=== PATIENT | female | born 1950 | race Two or more races ===

== ENCOUNTER 2023-12-23 16:44 | Inpatient (IN) | payer MEDICAID ==
[~2023-12-23] VITALS: Ht 161.3 cm; Wt 78.7 kg
--- NOTE | 2023-12-23 17:00 | ED.PDOC ---
HPI Comments 73Y F with PMHx depression presents to ED via EMS for chief complaint chest pain and SOB. Pt describes chest pain as pressure and non-radiating. Upon EMS arrival, pt's O2 sat was 88% and she was placed on oxygen supplementation. Per EMS, EKG showed RBBB. Chief Complaint: Chest Pain Time Seen by MD: 16:52 Reviewed Notes: Medications, Allergies Information Source: Patient, Emergency Med Personnel Mode of Arrival: EMS Brought in by: EMS Severity: Moderate Timing: Hours Duration: Since onset Prehospital treatment: Oxygen Location: Substernal Radiation: No Radiation Quality: Pressure Onset: At Rest Cardiac Risk Factors: None PE Risk Factors: None History of: None Modifying Factors: Nothing Associated Signs and Symptoms: SOB Past Medical History PAST MEDICAL HISTORY: Depression Surgical History: Denies all surgeries LIAISON INSPECTION LABORATORY ASSISTANT History: No Pertinent LIAISON INSPECTION LABORATORY ASSISTANT History Family History Family History: Unknown Social History Smoker: Unknown Alcohol: Unknown Drugs: Unknown Lives In: Home Constitutional: denies: chills, diaphoresis, fatigue, fever, malaise, sweats, weakness, others EENTM: denies: blurred vision, double vision, ear bleeding, ear discharge, ear drainage, ear pain, ear ringing, eye pain, eye redness, hearing loss, mouth pa in, mouth swelling, nasal discharge, nose bleeding, nose congestion, nose pain, photophobia, tearing, throat pain, throat swelling, voice changes, others Respiratory: reports: shortness of breath; denies: cough, hemoptysis, orthopnea, SOB at rest, SOB with excertion, stridor, wheezing, others Cardiovascular: reports: chest pain; denies: dizzy spells, diaphoresis, Dyspnea on exertion, edema, irregular heart beat, left arm pain, lightheadedness, palpitations, PND, syncope, others Gastrointestinal: denies: abdomen distended, abdominal pain, blood streaked bowels, constipated, diarrhea, dysphagia, difficulty swallowing, hematemesis, melena, nausea, poor appetite, poor fluid intake, rectal bleeding, rectal pain, vomiting, others Genitourinary: denies: abnormal vagina bleeding, burning, dyspareunia, dysuria, flank pain, frequency, hematuria, incontinence, pain, , vagina discharge , urgency, others Neurological: denies: dizziness, fainting, headache, left sided numbness, left sided weakness, numbness, paresthesia, pre-existing deficit, right sided numbness, right sided weakness, seizure, speech problems, tingling, tremors, weakness, others Musculoskeletal: denies: back pain, gout, joint pain, joint swelling, muscle pain, muscle stiffness, neck pain, others Integumetry: denies: bruises, change in color, change in hair/nails, dryness, laceration, lesions, lumps, rash, wounds, others Allergic/Immunocompromised: denies: Difficulty Healing, Frequent Infections, Hives, Itching, others Hematologic/Lymphatic: denies: anemia, blood clots, easy bleeding, easy bruising, swollen glands, others Endocrine: denies: excessive hunger, excessive sweating, excessive thirst, excessive urination, flushing, intolerance to cold, intolerance to heat, unexplained weight gain, unexplained weight loss, others Psychiatric: denies: anxiety, bipolar disorder, depression, hopeless, panic di sorder, schizophrenia, sleepless, suicidal, others All Other Systems: Reviewed and Negative Physical Exam General Appearance: Moderate Distress, Normal HEENT: Normal ENT Inspection, Pharynx Normal, TMs Normal Neck: Full Range of Motion, Non-Tender, Normal, Normal Inspection Respiratory: Chest Non-Tender, Lungs Clear, No Accessory Muscle Use, No Respiratory Distress, Normal Breath Sounds Cardiovascular: No Edema, No JVD, No Murmur, No Gallop, Normal Peripheral Pulses, Regular Rate/Rhythm Breast Exam: Deferred Gastrointestinal: No Organomegaly, Non Tender, No Pulsatile Mass, Normal Bowel Sounds, Soft Genitalia: Deferred Pelvic: Deferred Rectal: Deferred Extremities: No calf tenderness, Normal capillary refill, Normal inspection, Normal range of motion, Non-tender, No pedal edema Musculoskeletal : Apperance: Normal Neurologic: Alert, propulsion motor and generator repairer II-XII nml as Tested, No Motor Deficits, Normal Affect, Normal Mood, No Sensory Deficits Cerebellar Function: NOT DONE Reflexes: NOT DONE Skin: Dry, Normal Color, Warm Peripheral Pulses: 3+ Radial (R), 3+ Radial (L) Lymphatic: No Adenopathy Was a procedure done? Was a procedure done?: No CP Differential Dx Differential Diagnosis: A-fib, A-Flutter, Angina, Anxiety / Panic Attack, Atrial Dysrhythmia, Electrolyte Disorder X-Ray, Labs, Meds, VS Vital Signs Date Time Temp Pulse Resp B/P (MAP) Pulse Ox O2 Delivery O2 Flow Rate FiO2 12/23/23 16:44 86 Lab Test 12/23/23 16:59 Range/Units White Blood Count 6.0 4.4-10.8 10^3/uL Red Blood Count 4.29 4.0-5.20 10^6/uL Hemoglobin 13.9 12.2-16.2 g/dL Hematocrit 41.3 36.0-46.0 % Mean Corpuscular Volume 96.3 80.0-100.0 fL Mean Corpuscular Hemoglobin 32.5 H 28.0-32.0 pg Mean Corpuscular Hemoglobin Concent 33.7 32.0-36.0 g/dL Red Cell Distribution Width 13.7 11.8-14.3 % Platelet Count 187 140-450 10^3/uL Mean Platelet Volume 7.4 6.9-10.8 fL Neutrophils (%) (Auto) 46.8 37.0-80.0 % Lymphocytes (%) (Auto) 41.4 10.0-50.0 % Monocytes (%) (Auto) 9.8 0.0-12.0 % Eosinophils (%) (Auto) 1.6 0.0-7.0 % Basophils (%) (Auto) 0.4 0.0-2.0 % Neutrophils # (Auto) 2.8 1.6-8.6 10 ^3/uL Lymphocytes # (Auto) 2.5 0.4-5.4 10 ^3/uL Monocytes # (Auto) 0.6 0-1.3 10 ^3/uL Eosinophils # (Auto) 0.1 0-0.8 10 ^3/uL Basophils # (Auto) 0 0-0.2 10 ^3/uL Nucleated Red Blood Cells 0.1 % Prothrombin Time Pending Prothrombin Time INR Pending Activated Partial Thromboplast Time Pending Sodium Level Pending Potassium Level Pending Chloride Level Pending Carbon Dioxide Level Pending Anion Gap Pending Blood Urea Nitrogen Pending Creatinine Pending Glomerular Filtration Rate Calc Pending BUN/Creatinine Ratio Pending Serum Glucose Pending Calcium Level Pending Magnesium Level Pending Total Bilirubin Pending Aspartate Amino Transferase (AST) Pending Alanine Aminotransferase (ALT) Pending Alkaline Phosphatase Pending Troponin I High Sensitivity 97 *H </=34 ng/L B-Type Natriuretic Peptide 61.11 0-100 pg/mL Total Protein Pending Albumin Pending [facility] [id number] [facility] [address] Ph: [phone] DIAGNOSTIC IMAGING Diagnostic Imaging Report : [id number] Signed PATIENT: ESTEBAN JAFFE ACCT: [id number] UNIT: [id number] : 1950 LOC: ER ROOM / BED: / AGE / SEX: 73 / F ADM STATUS: REG ER SERVICE 44 ORDERING PHYSICIAN: VINCE RAMIREZ MD PROCEDURE(s): CXRP - CHEST PORTABLE REASON: CHEST PAIN ORDER NUMBER(s): [id number], ACCESSION NUMBER(s): [id number] CHEST RADIOGRAPH Indication:CHEST PAIN Technique: Single frontal view of the chest was obtained COMPARISON: None FINDINGS: Lines and Tubes: None Lungs: Clear Pleura: No effusion. No pneumothorax. Cardiomediastinal contours: Unremarkable Bones: Unremarkable IMPRESSION: No acute disease. ATED BY: DANIEL MISHRA MD DICTATED DATE/TIME: 12/23/231722 SIGNED BY: DANIEL MISHRA MD SIGNED DATE/TIME: 12/23/231722 CC: Patient alert. Complaining of chest pain. History of depression. Vitals stable. EKG reviewed does not show any acute changes. Was given aspirin. Was given nitro. Echo. Cardiology consultation. Her saturation was low in the field. Was placed on oxygen. Reviewed her previous visit. Explained to the patient. Continue cardiac monitoring. Time of 1ST Reevaluation: 17:03 Reevaluation 1ST: Unchanged Patient Education/Counseling: Diagnosis, Treatment Family Education/Counseling: No Family Present Departure 1 Departure Time of Disposition: 17:06 Impression: Primary Impression: Chest pain of unknown etiology Additional Impression: NSTEMI (non-ST elevated myocardial infarction) Disposition: 09 ADMITTED INPATIENT Admit to: Med Surg Condition: Guarded Critical Care Note Critical Care Time?: Yes (45 min-critical care time only) Stability Stability form required: No Heart Score Heart Score: Heart Score Response (Comments) Value History Slightly Suspicious 0 EKG Normal 0 Age >65 2 Risk Factors 1 or 2 risk factors 1 Troponin >3 x's Normal limit 2 Total 5 I personally scribed for VINCE RAMIREZ MD ([email or web address]) on 12/23/23 at 17:00. Electronically submitted by Alexa Nix ([facility] I personally scribed for VINCE RAMIREZ MD ([email or web address]) on 12/23/23 at 17:29. Electronically submitted by Alexa Nix ([email or web address]). VINCE RAMIREZ MD Dec 23, 2023 17:00
[2023-12-23 17:14] LABS: Basophils # (auto) 0 10 ^3/uL (0-0.2); Basophils % (auto) 0.4 % (0.0-2.0); Eosinophils # (auto) 0.1 10 ^3/uL (0-0.8); Eosinophils % (auto) 1.6 % (0.0-7.0); Hematocrit 41.3 % (36.0-46.0); Hemoglobin 13.9 g/dL (12.2-16.2); Lymphocytes # (auto) 2.5 10 ^3/uL (0.4-5.4); Lymphocytes % (auto) 41.4 % (10.0-50.0); Mean Corpuscular Hemoglobin 32.5 pg (28.0-32.0); Mean Corpuscular Hgb Conc. 33.7 g/dL (32.0-36.0); Mean Corpuscular Volume 96.3 fL (80.0-100.0); Monocytes # (auto) 0.6 10 ^3/uL (0-1.3); Monocytes % (auto) 9.8 % (0.0-12.0); Neutrophils # (auto) 2.8 10 ^3/uL (1.6-8.6); Neutrophils % (auto) 46.8 % (37.0-80.0); Nucleated Red Blood Cells % 0.1 %; Platelet Count (auto) 187 10^3/uL (140-450); Red Blood Cells 4.29 10^6/uL (4.0-5.20); Red Cell Distribution Width 13.7 % (11.8-14.3)
[2023-12-23] MEDS: MORPHINE SULFATE 4 MG/ML SYR/VIAL IV ONE (17:15)
[2023-12-23] MEDS: ONDANSETRON HCL 4 MG/2 ML VIAL IV ONE (17:15)
--- NOTE | 2023-12-23 17:27 | DVH ---
CHEST RADIOGRAPH Indication:CHEST PAIN Technique: Single frontal view of the chest was obtained COMPARISON: None FINDINGS: Lines and Tubes: None Lungs: Clear Pleura: No effusion. No pneumothorax. Cardiomediastinal contours: Unremarkable Bones: Unremarkable IMPRESSION: No acute disease.
[2023-12-23 17:34] LABS: Alanine Aminotransferase 23 U/L (7-40); Albumin 4.4 g/dL (3.2-4.8); Alkaline Phosphatase 76 U/L (46-116); Anion Gap 10 (5-15); Aspartate Aminotransferase 20 U/L (13-40); BUN/Creatinine Ratio 17.6 (10.0-20.0); Bilirubin, Total 0.5 mg/dL (0.2-1.0); Blood Urea Nitrogen 22 mg/dL (9-23); Calcium 9.9 mg/dL (8.7-10.4); Carbon Dioxide 23 mmol/L (20-31); Chloride 111 mmol/L (98-107); Glucose 108 mg/dL (74-106); Magnesium 2.3 mg/dL (1.6-2.6); Sodium 144 mmol/L (136-145); Total Protein 6.9 g/dL (5.7-8.2)
[2023-12-23 17:48] LABS: INR 1.03 (0.9-1.15); Partial Thromboplastin Time 27.3 SEC (24.5-34.5); Prothrombin Time 10.9 sec (9.3-11.8)
[2023-12-23 18:00] VITALS: PULSE 99; RESP 24; O2SAT 99
[2023-12-23] MEDS: ENOXAPARIN SOD 80 MG/0.8ML SYRINGE SC ONE (18:00)
[2023-12-23] MEDS: ASPirin 325 MG TAB PO ONE (18:00)
[2023-12-23 19:30] VITALS: PULSE 92; RESP 14; O2SAT 99
[2023-12-23] MEDS: NITROGLYCERIN 0.4 MG SL TAB SL ONE (19:43)
--- NOTE | 2023-12-23 20:44 | ECG ---
[facility] Test Date: 2023-12-23 Test Time: 19:17:27 Pat Name: ESTEBAN JAFFE Department: ER Room: Gender: F Manager Talent Management: AMANDA : 1950 Requested By: VINCE RAMIREZ Order Number: [id number] Reading MD: Measurements Intervals [place] Rate: 81 P: 69 WA: 176 QRS: -53 QRSD: 123 T: 76 QT: 389 QTc: 452 Interpretive Statements Sinus rhythm IVCD, consider atypical RBBB Please click the below link to view image of tracing.
[2023-12-23 21:02] VITALS: PULSE 77; RESP 15; O2SAT 100
[2023-12-23] MEDS ORDERED: ONDANSETRON HCL 4 MG/2 ML VIAL IV PRN (21:15)
[2023-12-23] MEDS ORDERED: ACETAMINOPHEN 325 MG TAB PO PRN (21:15)
[2023-12-23] MEDS: MAALOX PLUS or MAALOX 30 ML PO ONE (21:15)
[2023-12-23] MEDS ORDERED: NITROGLYCERIN 0.4 MG SL TAB SL PRN (21:15)
[2023-12-23] MEDS ORDERED: MORPHINE SULFATE 4 MG/ML SYR/VIAL IV PRN (21:15)
[2023-12-23] MEDS: SODIUM CHLORIDE 0.9% 1,000 ML IV SCH (21:32)
--- NOTE | 2023-12-23 21:37 | DVHHP2 ---
History of Present Illness Reason for Visit: chest pain History of Present Illness 73 yo with chest pain and shortness of breath and weakness was stated to have chest pain on arrival in the ED also stated noted RBBB at the time of ED arrival on evaluation for admission trops were seen to be severely elevated cardio was called directly and recommended admission and evaluation for possible cardiac cath lab technologist patient has received therapeutic Lovenox already Cardiovascular: HTN Review of Systems Constitutional: Yes: Weakness; No: Fever, Chills, Sweats, Malaise, Other Eyes: No: Pain, Vision change, Conjunctivae inflammation, Eyelid inflammation, Other, Redness ENT: No: Ear pain, Ear discharge, Nose pain, Nose discharge, Nose congestion, Mouth pain, Mouth swelling, Throat pain, Throat swelling, Other Respiratory: Shortness of breath; No: Cough, Dry, SOB with excertion, Wheezing, Hemoptysis, Pleuritic Pain, Sputum, Wheezing, Other Cardiovascular: Chest Pain; No: Palpitations, Orthopnea, Paroxysmal Noc. Dyspnea, Edema, Lt Headedness, Other Gastrointestinal: No: Nausea, Vomiting, Abdominal Pain, Diarrhea, Constipation, Melena, Hematochezia, Other Genitourinary: No Dysuria, No Frequency, No Incontinence, No Hematuria, No Retention, No Other Musculoskeletal: No: other, neck pain, shoulder pain, arm pain, back pain, hand pain, leg pain, foot pain Skin: No: Rash, Lesions, Jaundice, Bruising, Other Neurological: No: Weakness, Numbness, Incoordination, Change in speech, Confusion, Seizures, Other Allergies: Coded Allergies: NO KNOWN ALLERGIES (Unverified , 12/23/23) Exam Vital Signs Vital Signs Date Time Temp Pulse Resp B/P (MAP) Pulse Ox O2 Delivery O2 Flow Rate FiO2 12/23/23 20:57 77 15 103/72 (82) 99 12/23/23 19:30 97.7 97.7 12/23/23 19:30 Nasal Cannula* 2 28 General Appearance: Alert, Oriented X3, moderate distress HEENT: Atraumatic, PERRLA Respiratory: Clear to auscultation, Normal air movement Cardiovascular: Regular rate, Normal S1, Normal S2 Abdominal: Normal bowel sounds, Soft, No tenderness Extremities: No clubbing, No cyanosis Skin: No rashes, No breakdown Neuro: Normal speech Psych/Mental Status: Mental status NL, Mood NL Labs/Xrays Labs Test 12/23/23 19:42 12/23/23 16:59 Range/Units Troponin I High Sensitivity 1232 *H </=34 ng/L White Blood Count 6.0 4.4-10.8 10^3/uL Red Blood Count 4.29 4.0-5.20 10^6/uL Hemoglobin 13.9 12.2-16.2 g/dL Hematocrit 41.3 36.0-46.0 % Mean Corpuscular Volume 96.3 80.0-100.0 fL Mean Corpuscular Hemoglobin 32.5 H 28.0-32.0 pg Mean Corpuscular Hemoglobin Concent 33.7 32.0-36.0 g/dL Red Cell Distribution Width 13.7 11.8-14.3 % Platelet Count 187 140-450 10^3/uL Mean Platelet Volume 7.4 6.9-10.8 fL Neutrophils (%) (Auto) 46.8 37.0-80.0 % Lymphocytes (%) (Auto) 41.4 10.0-50.0 % Monocytes (%) (Auto) 9.8 0.0-12.0 % Eosinophils (%) (Auto) 1.6 0.0-7.0 % Basophils (%) (Auto) 0.4 0.0-2.0 % Neutrophils # (Auto) 2.8 1.6-8.6 10 ^3/uL Lymphocytes # (Auto) 2.5 0.4-5.4 10 ^3/uL Monocytes # (Auto) 0.6 0-1.3 10 ^3/uL Eosinophils # (Auto) 0.1 0-0.8 10 ^3/uL Basophils # (Auto) 0 0-0.2 10 ^3/uL Nucleated Red Blood Cells 0.1 % Prothrombin Time 10.9 9.3-11.8 sec Prothrombin Time INR 1.03 0.9-1.15 Activated Partial Thromboplast Time 27.3 24.5-34.5 SEC Sodium Level 144 136-145 mmol/L Potassium Level 4.0 3.5-5.1 mmol/L Chloride Level 111 H 98-107 mmol/L Carbon Dioxide Level 23 20-31 mmol/L Anion Gap 10 5-15 Blood Urea Nitrogen 22 9-23 mg/dL Creatinine 1.25 H 0.550-1.02 mg/dL Glomerular Filtration Rate Calc 46 >90 mL/min BUN/Creatinine Ratio 17.6 10.0-20.0 Serum Glucose 108 H 74-106 mg/dL Calcium Level 9.9 8.7-10.4 mg/dL Magnesium Level 2.3 1.6-2.6 mg/dL Total Bilirubin 0.5 0.2-1.0 mg/dL Aspartate Amino Transferase (AST) 20 13-40 U/L Alanine Aminotransferase (ALT) 23 7-40 U/L Alkaline Phosphatase 76 46-116 U/L B-Type Natriuretic Peptide 61.11 0-100 pg/mL Total Protein 6.9 5.7-8.2 g/dL Albumin 4.4 3.2-4.8 g/dL Assessment/Plan Assessment/Plan Admit to Tele NStemi Suspected RBBB Trops elevated most recent trops 1200 cardio consulted possible need for cardiac cath chest pain hospital protocol HTN monitor bp prn bp meds o2 supplements Plan discussed with: Patient My Orders Orders - SONIDO DODGE MD Procedure Category Date Status Time * Cardiology Consult CONS 12/23/23 Transmitted 21:02 Admit ADMIT 12/23/23 Transmitted 21:04 Code Status CODE 12/23/23 Transmitted 21:04 Airplane Pilot Chief TESSIE 12/23/23 In Process 21:04 Cardiac DIET 12/24/23 Transmitted Diet-2gna,Lofat,Lochol Breakfast Sodium Chloride 0.9% PHA 12/23/23 Logged 21:15 Aspirin Tablet PHA 12/24/23 Logged 10:00 Clopidogrel Bisulfate PHA 12/24/23 Logged (Plavix) 10:00 Atorvastatin (Lipitor) PHA 12/23/23 Logged 22:00 Metoprolol Tartrate PHA 12/23/23 Logged Tablet (Lopressor Ta 22:00 Morphine Sulfate PHA 12/23/23 Logged Injection 21:15 Acetaminophen Tablet PHA 12/23/23 Logged (Tylenol Tablet) 21:15 Docusate Sodium PHA 12/24/23 Logged Capsule (Colace 10:00 Complete Blood Count LAB 12/24/23 Verified 04:00 Basic Metabolic Panel LAB 12/24/23 Verified 04:00 Echo 2d Mode Cardiac US 12/23/23 Logged DOP 21:04 Enoxaparin Sodium PHA 12/23/23 Logged (Lovenox) 22:00 Nitroglycerin PHA 12/23/23 Logged Sublingual (Ntrostat 21:15 Ondansetron Hcl PHA 12/23/23 Logged (Zofran) 21:15 Electrocardigram EKG 12/23/23 Logged 21:04 Alum & Mag PHA 12/23/23 Logged Hydrox-Simethicone 21:15 Troponin-I Hs LAB 12/23/23 Logged 21:04 Cardiac TESSIE 12/23/23 In Process Rehabilitation - Outpa Stat Ekg For Chest TESSIE 12/23/23 In Process Pain 21:04 Notify Md Of Changes [facility] 12/23/23 In Process From Base 21:04 Supervisor Screen Printing For [facility] 12/23/23 In Process 24 Hours 21:04 Emergency Dysrhythmia [facility] 12/23/23 In Process Protocol 21:04 Rhythm Strips Once [facility] 12/23/23 In Process Every Shift 21:04 Oxygen By Nasal RT 12/23/23 Transmitted Cannula 21:04 Electrocardigram EKG 12/23/23 Logged 22:04 Electrocardigram EKG 12/24/23 Logged 00:04 Troponin-I Hs LAB 12/23/23 Logged 22:04 Troponin-I Hs LAB 12/24/23 Verified 00:04 Problem List: (1) NSTEMI (non-ST elevated myocardial infarction) (2) Chest pain of unknown etiology Date of Service: Dec 23, 2023 Billing Provider: SONIDO DODGE MD Common Visit Codes: [id number] INP/OBS CARE (HIGH) SONIDO DODGE MD Dec 23, 2023 21:37
[2023-12-23] MEDS: METOPROLOL TARTRATE 25 MG TAB PO SCH (21:56)
[2023-12-23] MEDS: ATORVASTATIN 20 MG TAB PO SCH (21:56)
[2023-12-23] MEDS: ENOXAPARIN SOD 80 MG/0.8ML SYRINGE SC SCH (22:01)
[2023-12-23] MEDS ORDERED: TOPI25CA5 PO (22:04)
[2023-12-23] MEDS ORDERED: TRAZ-181 PO (22:04)
[2023-12-23 23:31] VITALS: BP 110/75; PULSE 80; RESP 17; TEMP 97.8; O2SAT 98
[2023-12-24] VITALS (8 sets, daily range): BP systolic 97–134; BP diastolic 67–81; PULSE 65–77; RESP 16–18; TEMP 97.4–98.5; O2SAT 96–100
[2023-12-24] MEDS ORDERED: TOPI25CA5 PO (02:48)
[2023-12-24] MEDS ORDERED: BUPR150T8 PO (02:55)
[2023-12-24] MEDS ORDERED: PANT40TA2 PO (02:55)
[2023-12-24] MEDS ORDERED: GABA400C PO (02:55)
[2023-12-24 06:34] LABS: Basophils # (auto) 0 10 ^3/uL (0-0.2); Basophils % (auto) 0.5 % (0.0-2.0); Eosinophils # (auto) 0.1 10 ^3/uL (0-0.8); Eosinophils % (auto) 1.4 % (0.0-7.0); Hematocrit 37.7 % (36.0-46.0); Lymphocytes # (auto) 2.7 10 ^3/uL (0.4-5.4); Mean Corpuscular Hemoglobin 32.9 pg (28.0-32.0); Mean Corpuscular Hgb Conc. 34.6 g/dL (32.0-36.0); Mean Corpuscular Volume 95.3 fL (80.0-100.0); Monocytes # (auto) 0.5 10 ^3/uL (0-1.3); Monocytes % (auto) 9.1 % (0.0-12.0); Neutrophils # (auto) 2.4 10 ^3/uL (1.6-8.6); Nucleated Red Blood Cells % 0.4 %; Platelet Count (auto) 155 10^3/uL (140-450); Red Blood Cells 3.96 10^6/uL (4.0-5.20); Red Cell Distribution Width 13.8 % (11.8-14.3); White Blood Cell 5.7 10^3/uL (4.4-10.8)
[2023-12-24 06:40] LABS: Calcium 9.1 mg/dL (8.7-10.4); Chloride 114 mmol/L (98-107); Potassium 3.8 mmol/L (3.5-5.1); Sodium 144 mmol/L (136-145)
[2023-12-24 06:41] LABS: Anion Gap 8 (5-15); Carbon Dioxide 22 mmol/L (20-31)
[2023-12-24 06:47] LABS: Blood Urea Nitrogen 15 mg/dL (9-23); Glucose 95 mg/dL (74-106)
[2023-12-24 07:03] LABS: Triglycerides 109 mg/dL (< 150)
[2023-12-24 07:04] LABS: LDL Cholesterol 135 mg/dL (< 100)
[2023-12-24 07:05] LABS: Cholesterol 206 mg/dL (< 200); HDL Cholesterol 48 mg/dL (40-59)
--- NOTE | 2023-12-24 09:43 | DVHPN2 ---
Subjective Seen and examined at bedside, chest pain has improved. Cardio cx. Patient reports shes been in alot of stress lately due to personal issues. Changes from previous H/P or p: No Changes Eyes: No Pain, No Vision change, No Conjunctivae inflammation, No Eyelid inflammation, No Other, No Redness ENT: No Ear pain, No Ear discharge, No Nose pain, No Nose discharge, No Nose congestion, No Mouth pain, No Mouth swelling, No Throat pain, No Throat swelling, No Other Cardiovascular: Chest Pain; No Palpitations, No Orthopnea, No Paroxysmal Noc. Dyspnea, No Edema, No Lt Headedness, No Other Respiratory: No Cough, No Dry; Shortness of breath; No SOB with excertion, No Wheezing, No Hemoptysis, No Pleuritic Pain, No Sputum, No Other Gastrointestinal: No Nausea, No Vomiting, No Abdominal Pain, No Diarrhea, No Constipation, No Melena, No Hematochezia, No Other Genitourinary: No Dysuria, No Frequency, No Incontinence, No Hematuria, No Retention, No Other Musculoskeletal: No other, No neck pain, No shoulder pain, No arm pain, No back pain, No hand pain, No leg pain, No foot pain Skin: No Rash, No Lesions, No Jaundice, No Bruising, No Other Objective Vitals Vital Signs Date Time Temp Pulse Resp B/P (MAP) Pulse Ox O2 Delivery O2 Flow Rate FiO2 12/24/23 05:00 97.7 67 17 97/74 (82) 97 97.7 12/23/23 23:31 Nasal Cannula* 2 28 Intake/Output Intake and Output 12/24/23 07:00 Intake Total 0 ml Balance 0 ml Intake Oral 0 ml General Appearance: Alert, Oriented X3, Cooperative, mild distress HEENT: Atraumatic Neck: Carotid [place] Lungs: Clear to auscultation Cardiovascular: Regular rate, Normal S1, Normal S2 Abdomen: Normal bowel sounds, Soft Psych/Mental Status: Mental status NL Medications Current Medications Medications Dose Ordered Sig/Audrey Route Start Time Stop Time Status Last Admin Dose Admin Sodium Chloride 1,000 ml @ 75 mls/hr [id number] IV 12/23/23 21:15 12/23/23 21:32 75 MLS/HR Aspirin 81 mg DAILY PO 12/24/23 10:00 Clopidogrel Bisulfate 75 mg DAILY PO 12/24/23 10:00 Atorvastatin Calcium 80 mg HS PO 12/23/23 22:00 Metoprolol Tartrate 12.5 mg Q12HR PO 12/23/23 22:00 Morphine Sulfate 2 mg Q30MP PRN IV 12/23/23 21:15 Acetaminophen 650 mg Q6HP PRN PO 12/23/23 21:15 Docusate Sodium 100 mg DAILY PO 12/24/23 10:00 Enoxaparin Sodium 80 mg Q12HR SC 12/23/23 22:00 12/23/23 22:01 80 MG Nitroglycerin 0.4 mg Q5MINP PRN SL 12/23/23 21:15 Ondansetron HCl 4 mg Q4HP PRN IV 12/23/23 21:15 Laboratory Results Laboratory Tests 12/24/23 05:57 Chemistry Test 12/23/23 16:59 12/24/23 05:57 Albumin 4.4 g/dL (3.2-4.8) Calcium Level 9.9 mg/dL (8.7-10.4) 9.1 mg/dL (8.7-10.4) Magnesium Level 2.3 mg/dL (1.6-2.6) Total Protein 6.9 g/dL (5.7-8.2) Coagulation Test 12/23/23 16:59 Prothrombin Time 10.9 sec (9.3-11.8) Prothrombin Time INR 1.03 (0.9-1.15) Activated Partial Thromboplast Time 27.3 SEC (24.5-34.5) Lipid panel Test 12/24/23 05:57 Cholesterol Level 206 mg/dL (< 200) H HDL Cholesterol 48 mg/dL (40-59) Triglycerides Level 109 mg/dL (< 150) Cardiac Markers Test 12/23/23 16:59 B-Type Natriuretic Peptide 61.11 pg/mL (0-100) LFT Test 12/23/23 16:59 Alanine Aminotransferase (ALT) 23 U/L (7-40) Alkaline Phosphatase 76 U/L (46-116) Aspartate Amino Transferase (AST) 20 U/L (13-40) Total Bilirubin 0.5 mg/dL (0.2-1.0) Assessment/Plan Assessment/Plan # NSTEMI - ASA / Plavix - Lovenox Subq - Cardio Cx # YOVANI due to VMN? - Monitor renal function # Possible Takasubo Cardiomyopathy? # Depression - Cont Home Meds # Goals of care- FULL CODE Plan discussed with: Patient, Spouse My Orders Orders - DANNY LR MD Procedure Category Date Status Time Basic Metabolic Panel LAB 12/25/23 Verified 04:00 Thyroid Stimulating LAB 12/25/23 Verified Hormone 04:00 Topiramate (Topamax) PHA 12/24/23 Transmitted 10:00 Bupropion Tablet PHA 12/24/23 Transmitted (Wellbutrin Tablet) 10:00 Gabapentin Capsule PHA 12/24/23 Transmitted (Neurontin Capsule) 10:00 Date of Service: Dec 24, 2023 Billing Provider: DANNY LR MD Common Visit Codes: [id number] INP/OBS CARE(HIGH) Secondary Visit Codes: [id number] CARE PLAN 30 MINUTES DANNY LR MD Dec 24, 2023 09:43
[2023-12-24] MEDS: DOCUSATE SOD 100 MG CAP PO SCH (10:00)
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
--- NOTE | 2023-12-24 10:42 | DVH ---
Left lower extremity venous duplex Clinical History: Edema, R/O DVT Comparison: None Technique: Duplex Doppler evaluation of the deep venous system of the left lower extremity from the common femor al vein to the popliteal vein including color Doppler and spectral/pulsed waveform analysis was perfo rmed. Findings: The common femoral vein demonstrates appropriate compressibility and waveform variability . There is compressibility/patency of the great saphenous vein at the proximal thigh . The femoral vein demonstrates appropriate compressibility and waveform variability . The deep femoral vein demonstrates appropriate compressibility and waveform variability . The popliteal vein demonstrates appropriate compressibility and waveform variability . There is normal compressibility at the tibioperoneal trunk. Impression: 1. No left femoropopliteal venous thrombosis.
[2023-12-24] MEDS: TOPIRAMATE 25 MG TAB PO SCH (10:50)
[2023-12-24] MEDS: GABAPENTIN 400 MG CAP PO ONE (10:50)
[2023-12-24] MEDS: ASPirin 81 mg TAB PO SCH (10:50)
[2023-12-24] MEDS: buPROPion HCL 100 MG TAB PO ONE (10:50)
[2023-12-24] MEDS: CLOPIDOGREL BISULFATE 75 MG TAB PO SCH (10:51)
[2023-12-24] MEDS: IOHEXOL 350 MG/ML 100ML IJ ONE (12:03)
--- NOTE | 2023-12-24 12:50 | DVH ---
CLINICAL INFORMATION: 73 years old, Female; pulmonary embolism.. TECHNIQUE: Axial CTA images of the chest were obtained after the uneventful administration of 100 mL of Omnipaque 350 IV contrast. Coronal and sagittal reformatted images and MIP images were obtained, reviewed, and stored. One or more of the following dose reduction techniques were used: Automated exp osure control. Adjustment of mA and/or kV according to patient size. CTDIvol = 15.52, 44.36 mGy DLP = 589.65 mGy-cm COMPARISON: None FINDINGS: Pulmonary arteries: Saddle embolus extending from the main pulmonary artery into the right and left pulmonary arteries and proximal lobar branches. Aorta: No aneurysm or dissection. Cardiac: Heart size is within normal limits. There is evidence of right heart strain with the right v entricle measuring larger than the left ventricle and straightening of the intraventricular septum. T here is also reflux of contrast into the IVC and hepatic veins suggesting a degree of right heart yonatan lure. Moderate coronary artery calcification. Mediastinum/cheo: No mass or adenopathy. Lungs: 1 cm patchy opacity in the posterior right lower lobe adjacent to the pleural surface, may be infectious or inflammatory in nature. Mild dependent atelectasis also noted. Chest wall: No mass or other abnormality. Upper abdomen: Moderate hiatal hernia. Multiple calcified gallstones in the gallbladder. Gallbladder is distended measuring up to 8.1 x 4.6 cm. Bones: No fracture or suspicious intraosseous lesions. IMPRESSION: 1. Acute bilateral pulmonary emboli, including saddle embolus at the main pulmonary artery extending into the right and left pulmonary arteries and proximal lobar branches. 2. Findings consistent with right heart strain and a degree of right heart failure as described above . 3. Moderate hiatal hernia. 4. Cholelithiasis with distended gallbladder. 5. Patchy opacity in the right lower lobe, most likely infectious or inflammatory in nature. 6. Additional findings as detailed above. Critical findings Critical Result: Acute bilateral pulmonary emboli, including saddle embolus at the main pulmonary art gaurav and extending into the right and left main pulmonary arteries, and evidence of right heart strain as described above. Findings discussed with the patient's nurse, Lainey, by Dr. Reynoso by phone at 12/24/2023 02:45 PM ELECTRONICS HARDWARE DESIGN ENGINEER, and acknowledged receipt and understanding of the findings, and would let the ordering physicia n know about the findings. ..
[2023-12-24] MEDS ORDERED: HEPARIN SODIUM (PORCINE) 5000 UNITS/ML 1ML VIAL IV ONE (13:45)
[2023-12-24] MEDS ORDERED: HEPARIN DRIP/D5W 100UNITS/ML 250 ML IV SCH (13:45)
[2023-12-24 14:07] LABS: INR 1.03 (0.9-1.15); Partial Thromboplastin Time 32.8 SEC (24.5-34.5); Prothrombin Time 10.9 sec (9.3-11.8)
--- NOTE | 2023-12-24 14:49 | DVH ---
Right lower extremity venous duplex Clinical History: R/O DVT, positive PE Comparison: US LT LOWER DVT on DOS: 12/24/23 Technique: Duplex Doppler evaluation of the deep venous system of the right lower extremity from the common femo ral vein to the popliteal vein including color Doppler and spectral/pulsed waveform analysis was perf ormed. Findings: The common femoral vein demonstrates appropriate compressibility and waveform variability . There is compressibility/patency of the great saphenous vein at the proximal thigh . The femoral vein demonstrates appropriate compressibility and waveform variability . The deep femoral vein demonstrates appropriate compressibility and waveform variability . Possible small nonocclusive thrombus in a popliteal vein collateral. There is normal compressibility at the tibioperoneal trunk. Impression: 1. Possible small nonocclusive thrombus in a popliteal vein collateral. The remaining deep veins are patent.
[2023-12-24 17:20] LABS: Urine Bacteria None Seen /hpf (None Seen)
[2023-12-24 17:33] LABS: Urine Blood 1+ /uL (Negative); Urine Clarity Clear (Clear); Urine Color Yellow (Yellow); Urine Mucus FEW (None Seen); Urine Protein, UAD 1+ (Negative); Urine Urobilinogen Normal (Negative); Urine WBC 2 /hpf (0 - 5)
[2023-12-24 17:42] LABS: Urine Specific Gravity > 1.050 (1.001-1.035)
--- NOTE | 2023-12-24 19:11 | ECG ---
[facility] Test Date: 2023-12-23 Test Time: 17:36:10 Pat Name: ESTEBAN JAFFE Department: ER Room: 0221T Gender: F Ironing Worker: RAULITO : 1950 Requested By: VINCE RAMIREZ Order Number: [id number] Reading MD: Measurements Intervals [place] Rate: 94 P: 73 DE: 220 QRS: -88 QRSD: 130 T: 70 QT: 382 QTc: 478 Interpretive Statements Sinus rhythm Prolonged DE interval RBBB and LAFB Inferior infarct, old Please click the below link to view image of tracing.
[2023-12-24] MEDS: HEPARIN DRIP/D5W 100UNITS/ML 250 ML IV SCH (21:21)
[2023-12-24 23:25] LABS: INR 1.03 (0.9-1.15); Partial Thromboplastin Time 36.2 SEC (24.5-34.5); Prothrombin Time 10.9 sec (9.3-11.8)
[2023-12-25] VITALS (38 sets, daily range): BP systolic 102–132; BP diastolic 53–81; PULSE 45–89; RESP 11–22; TEMP 97.6–98.2; O2SAT 94–100
[2023-12-25] MEDS: HEPARIN DRIP/D5W 100UNITS/ML 250 ML IV SCH ×3 (01:24→22:33)
[2023-12-25 06:45] LABS: Chloride 114 mmol/L (98-107); Potassium 3.9 mmol/L (3.5-5.1); Sodium 143 mmol/L (136-145)
[2023-12-25 06:46] LABS: Anion Gap 9 (5-15); Carbon Dioxide 20 mmol/L (20-31)
[2023-12-25 06:47] LABS: Calcium 9.1 mg/dL (8.7-10.4)
[2023-12-25 06:52] LABS: BUN/Creatinine Ratio 15.7 (10.0-20.0); Blood Urea Nitrogen 16 mg/dL (9-23); Glucose 97 mg/dL (74-106)
--- NOTE | 2023-12-25 07:43 | DVHSR ---
APPROVED REPORT EXAM: Two-dimensional and M-mode echocardiogram with Doppler and color Doppler. Blood Pressure: 97/74 mmHg INDICATION Chest Pain RISK FACTORS Height: 5' 3", Weight: 167 DIMENSIONS LVDd3.9 (3.8-5.7cm)LA (2D)3.3 (1.9-4.0cm)Aortic Root3.0 (2.0-3.7cm) LVDs3.0 (2.5-4.0cm)LA (MM) (1.9-4.0cm)Aortic Cusp Exc1.7 (1.5-2.0cm) EF (%) 45.0 (55-70%)Rt. Atrium4.3 (1.9-4.0cm)Asc. Aorta cm IVSd1.1 (0.7-1.1cm)RV (D) (1.8-2.4cm) PWd1.0 (0.7-1.1cm) Mitral Valve MitralMitral Stenosis E wave0.40m/sMV Mean GR.mmHg A wave0.70m/sMV Peak GR.mmHg E/A ratio0.62D MVAcm2 Aortic Valve Aortic ValveAortic Stenosis V10.60m/Shayy Mean GR.3mmHg V21.00m/Shayy Peak GR.5mmHg LVOT Diameter2.0 (1.8-2.4cm)Doppler AVA1.88cm2 Pulmonic Valve V20.40m/s Tricuspid Valve TR Velocity2.80m/s [id number] Conclusion lvef 50% by visual estimate abnormal septal motion consistent with RV overload RV moderately enlarged with dysfunction mild to moderate tricuspid regurg, no PA pressures evaluated due to lack of TR envelope
[2023-12-25 08:27] LABS: INR 1.05 (0.9-1.15); Prothrombin Time 11.1 sec (9.3-11.8)
[2023-12-25 08:31] LABS: Partial Thromboplastin Time > 139.0 SEC (24.5-34.5)
[2023-12-25] MEDS: GABAPENTIN 400 MG CAP PO SCH (10:00)
[2023-12-25] MEDS: IODIXANOL 320MG/ML 100ML BTL IV ONE ×2 (10:41→11:38)
[2023-12-25] MEDS: LIDOCAINE 2%HCL (LOCAL ANESTH.) INJ 20ML MDV ONE (10:50)
[2023-12-25] MEDS: HEPARIN SODIUM (PORCINE) 5000 UNITS/ML 1ML VIAL ONE (11:16)
[2023-12-25] MEDS: fentaNYL CITRATE 100 MCG/2 ML VL ONE (11:41)
[2023-12-25] MEDS: MIDAZOLAM HCL 2MG/2ML 2ml VIAL (1mg/ml) ONE (11:42)
[2023-12-25] MEDS: PROTAMINE SULFATE 50 MG in SODIUM CHL 0.9% 50 ML IV ONE (13:10)
--- NOTE | 2023-12-25 13:22 | DVHOP ---
DATE OF SURGERY: 12/25/2023 PREOPERATIVE DIAGNOSES: Saddle pulmonary embolism with bilateral pulmonary embolism, non ST-elevation myocardial infarction, elevated troponin, right ventricular strain. POSTOPERATIVE DIAGNOSES: Saddle pulmonary embolism with bilateral pulmonary embolism, non ST-elevation myocardial infarction, elevated troponin, right ventricular strain. PROCEDURES PERFORMED: * Primary percutaneous transluminal mechanical thrombectomy arterial initial vessel, 22664. * Percutaneous transluminal mechanical thrombectomy of second and all subsequent vessels, 92772, 60450. * Pulmonary angiography, unilateral 12091. * Angiography selective each additional vessel, 83932. * Venography inferior, 52599. * Ultrasound-guided vascular access, 32781, saved to the PACS system. * Right heart catheterization, 67172. * Injection procedure during cardiac cath for angiography, 88200. * Injection procedure for venography, 69807. * Introduction of catheter to the IVC, 03813. * Introduction of catheter to the right heart or main PA, 67099. * Selective catheter placement left and right main PA, 46901. * Selective catheter placement segmental or subsegmental arteries, this was the right truncus arteriosus as well as the left middle and left lower lobar segmental arteries, 51635. PATIENT HISTORY: The patient presents with shortness of breath, hypoxia, and elevated troponin. After an elevated D-dimer, CT angio confirmed the saddle PE with RV strain. Echo confirmed this as well. The patient was placed on a heparin drip at this point. PROCEDURE IN DETAIL: The patient was brought to the laboratory mechanic helper in n.p.o. state. She was prepped in sterile fashion. The patient initially decided she did not want to have any sedation whatsoever. I did try to explain to the patient that this may be helpful at a light amount, but she declined it initially and said that she would reconsider midway through the procedure. Tere note my RN Mil also offered her sedation with myself. She declined." I want to be awake and learn what is going on". therefore, we agreed to proceed. I gave 8 mL of 2% lidocaine to her right groin with antegrade flow wall puncture. I cannulated her right common femoral vein and placed a 6-Iraqi sheath. Venography at this point showed a patent common iliac, external iliac vein, and common femoral vein into the distal IVC. At this point, I brought a crossing catheter and wire into the IVC and over an Amplatz wire, I made a dilatation with several dilators and eventually placed a 24-Iraqi GORE DrySeal sheath placed into the vein. At this point, I removed that and over a pigtail catheter, I crossed into the right main PA. At this point, the pigtail catheter was placed into the main PA. PA pressures were obtained. Please see cath report for details and then I brought a 24-Iraqi Inari FlowTriever device for mechanical thrombectomy to the right main PA. I also did angiogram into the right truncus which showed improved flow into the right upper lobe. At this point, after attempting to remove thrombus, the catheter was placed into the left system into the left lower hill. Because the right ventricle was extremely large and boggy, I did switch to a T20 curve device. The patient did request sedation at this point and the patient was given sedation and was hemodynamically stable throughout the procedure. The patient did get severely anxious and combative during the procedure and started pulling at all of her catheters and moving around. She had to be restrained, but was making the overall procedure extremely difficult and dangerous. Multiple whooshes were obtained in the left lower and left main PA with significant amount of thrombus removal. At this point, the patient was hemodynamically stable, crying and being very difficult and therefore we had to complete the procedure. I did another pulmonary angiogram, showed significant improvement in the left side and left lower. At this point, I removed the system and with a 2-Iraqi silk placed a FlowStasis device. There were no immediate complications. Post procedure, patient continued to move and not listen to staff and being combative. she was bending her entire leg dangerously and we had to hold pressure for an additional 30 minutes for adequate hemostasis. 1 dose of iv protamine given. please note several laboratory mechanic helper staff attended to her at all times post procedure. pt was given norco for pain and was Hemodynamically stable at all times. mahin laboratory mechanic helperoutside laborer was also at bedside and pt was monitored carefully. I held pressure myself as well. patient blamed her self several times about not listening. We encouraged her to continue to listen to instruction going forward and not move too much. SHe got angry and then called DR zbigniew Griffin office despite our care and attention at all times. I spoke with the primary hospitalist Dr Vasquez and pt was transferred to [facility] afterwards. CONCLUSION: Successful extirpation of matter via mechanical thrombectomy within the pulmonary arteries. Significant improvement in flow after mechanical thrombectomy. PLAN: 1. Anticoagulation. 2. Supplemental oxygen as needed. 3. transition to DOAC Goldy Fitch MD CM/DEX/MAIA TID: [id number] RECEIPT: [id number] [facility]
--- NOTE | 2023-12-25 13:59 | ECG ---
[facility] Test Date: 2023-12-23 Test Time: 16:43:08 Pat Name: ESTEBAN JAFFE Department: ER Room: 0249T Gender: F Journeyman Lineman: RAULITO : 1950 Requested By: SONIDO DODGE Order Number: [id number] Reading MD: Measurements Intervals [place] Rate: 86 P: 82 RI: 171 QRS: -28 QRSD: 129 T: 85 QT: 384 QTc: 460 Interpretive Statements Sinus rhythm Right bundle branch block Please click the below link to view image of tracing.
--- NOTE | 2023-12-25 14:17 | DVHPN2 ---
Progress Note Date Seen: Dec 25, 2023 Medical Necessity Reason Pt with a Central, PICC or Fol: No Subjective Other Systems: sp thrombectomy at end of procedure, pt became confused, combative, mvoing aggressively trying to get off table and had to be held back by several providers i had to quickly complete the procedure, post procedure flow stasis placed and no bleeding, pt kept moving around and in recovery had significant bleeding, holding pressure close to 1 hour and protamine given, pt HD stable, and conversing, she is apologetic for moving too much and understands clearly now that she was moving too much and realizes she was the one that didnt want sedation, groin site is soft however, lot of venous blood Objective vital signs Vital Sign Date Time Temp Pulse Resp B/P (MAP) Pulse Ox O2 Delivery O2 Flow Rate FiO2 12/25/23 08:00 65 12/25/23 07:57 18 97 Room Air* 0 21 12/25/23 05:00 97.6 129/63 (85) 97.6 Total Intake and Output 12/24/23 12/24/23 12/25/23 15:00 23:00 07:00 Intake Total 525 ml Balance 525 ml medications Current Medications Medications Dose Ordered Sig/Audrey Route Start Time Stop Time Status Last Admin Dose Admin Aspirin 81 mg DAILY PO 12/24/23 10:00 12/24/23 10:50 81 MG Clopidogrel Bisulfate 75 mg DAILY PO 12/24/23 10:00 12/24/23 10:51 75 MG Atorvastatin Calcium 80 mg HS PO 12/23/23 22:00 12/24/23 21:22 80 MG Metoprolol Tartrate 12.5 mg Q12HR PO 12/23/23 22:00 12/24/23 21:29 12.5 MG Morphine Sulfate 2 mg Q30MP PRN IV 12/23/23 21:15 Acetaminophen 650 mg Q6HP PRN PO 12/23/23 21:15 Docusate Sodium 100 mg DAILY PO 12/24/23 10:00 Nitroglycerin 0.4 mg Q5MINP PRN SL 12/23/23 21:15 Ondansetron HCl 4 mg Q4HP PRN IV 12/23/23 21:15 Topiramate 25 mg BID PO 12/24/23 10:00 12/24/23 21:22 25 MG Gabapentin 800 mg DAILY PO 12/25/23 10:00 Heparin Sodium/ Dextrose 250 ml @ 13 mls/hr [id number] IV 12/25/23 09:45 laboratory and microbiology Laboratory Tests 12/25/23 05:02 12/24/23 05:57 Test 12/25/23 05:02 Range/Units Serum Glucose 97 74-106 mg/dL Problem List/Assessment/Plan Problem List/Assessment/Plan saddle PE dvt obesity morbid htn hypoxia s/p thrombectomy pt very combative which caused some bleeding tx to andres hold x 6 hours resume heparin later tonight if stable iv lasix daily d/w dr jules 40 mins critical care time spent Plan discussed with: Patient, Other (rn ) My Orders My Orders Orders - DEBRA SOLORZANO MD Procedure Category Date Status Time Cl Inj Pulmonary CL 12/25/23 Taken Angiography 07:33 Us Guided Vascular US 12/25/23 Logged Access 07:33 Post Cath Vital Signs TESSIE 12/25/23 In Process Q 15min Post Cath Activity TESSIE 12/25/23 In Process Protocol 12:41 Flat In Bed TESSIE 12/25/23 In Process 12:41 * Military Analyst CONS 12/25/23 Transmitted Consult Date of Service: Dec 25, 2023 Billing Provider: DEBRA SOLORZANO MD Common Visit Codes: NOT BILLABLE DEBRA SOLORZANO MD Dec 25, 2023 14:17
[2023-12-25] MEDS: HYDROcodone-ACET 5/325MG TAB ONE (14:45)
[2023-12-25] MEDS: HYDROcodone-ACET 5/325MG TAB PO ONE (15:24)
--- NOTE | 2023-12-25 15:25 | DVHPN2 ---
Subjective Seen and examined at bedside, CTA showed PE. Underwent thrombectomy today. Changes from previous H/P or p: No Changes Eyes: No Pain, No Vision change, No Conjunctivae inflammation, No Eyelid inflammation, No Other, No Redness ENT: No Ear pain, No Ear discharge, No Nose pain, No Nose discharge, No Nose congestion, No Mouth pain, No Mouth swelling, No Throat pain, No Throat swelling, No Other Cardiovascular: No Palpitations, No Orthopnea, No Paroxysmal Noc. Dyspnea, No Edema, No Lt Headedness, No Other Respiratory: No Cough, No Dry, No SOB with excertion, No Wheezing, No Hemoptysis, No Pleuritic Pain, No Sputum, No Other Gastrointestinal: No Nausea, No Vomiting, No Abdominal Pain, No Diarrhea, No Constipation, No Melena, No Hematochezia, No Other Genitourinary: No Dysuria, No Frequency, No Incontinence, No Hematuria, No Retention, No Other Musculoskeletal: No other, No neck pain, No shoulder pain, No arm pain, No back pain, No hand pain, No leg pain, No foot pain Skin: No Rash, No Lesions, No Jaundice, No Bruising, No Other Objective Vitals Vital Signs Date Time Temp Pulse Resp B/P (MAP) Pulse Ox O2 Delivery O2 Flow Rate FiO2 12/25/23 08:00 65 12/25/23 07:57 18 97 Room Air* 0 21 12/25/23 05:00 97.6 129/63 (85) 97.6 Intake/Output Intake and Output 12/25/23 07:00 Intake Total 525 ml Balance 525 ml Intake Oral 300 ml IV Total 225 ml # Voids 4 # Bowel Movements 1 General Appearance: Alert, Oriented X3, Cooperative, mild distress HEENT: Atraumatic Neck: Carotid Bruits Otero Lungs: Clear to auscultation Cardiovascular: Regular rate, Normal S1, Normal S2 Abdomen: Normal bowel sounds, Soft Extremities: Other (Right Femoral dressing) Psych/Mental Status: Mental status NL Medications Current Medications Medications Dose Ordered Sig/Audrey Route Start Time Stop Time Status Last Admin Dose Admin Aspirin 81 mg DAILY PO 12/24/23 10:00 12/24/23 10:50 81 MG Clopidogrel Bisulfate 75 mg DAILY PO 12/24/23 10:00 12/24/23 10:51 75 MG Atorvastatin Calcium 80 mg HS PO 12/23/23 22:00 12/24/23 21:22 80 MG Metoprolol Tartrate 12.5 mg Q12HR PO 12/23/23 22:00 12/24/23 21:29 12.5 MG Morphine Sulfate 2 mg Q30MP PRN IV 12/23/23 21:15 Acetaminophen 650 mg Q6HP PRN PO 12/23/23 21:15 Docusate Sodium 100 mg DAILY PO 12/24/23 10:00 Nitroglycerin 0.4 mg Q5MINP PRN SL 12/23/23 21:15 Ondansetron HCl 4 mg Q4HP PRN IV 12/23/23 21:15 Topiramate 25 mg BID PO 12/24/23 10:00 12/24/23 21:22 25 MG Gabapentin 800 mg DAILY PO 12/25/23 10:00 Heparin Sodium/ Dextrose 250 ml @ 13 mls/hr [id number] IV 12/25/23 09:45 Laboratory Results Laboratory Tests 12/24/23 05:57 12/25/23 05:02 Chemistry Test 12/25/23 05:02 Calcium Level 9.1 mg/dL (8.7-10.4) Coagulation Test 12/24/23 22:54 12/25/23 06:57 Prothrombin Time 10.9 sec (9.3-11.8) 11.1 sec (9.3-11.8) Prothrombin Time INR 1.03 (0.9-1.15) 1.05 (0.9-1.15) Activated Partial Thromboplast Time 36.2 SEC (24.5-34.5) H > 139.0 SEC (24.5-34.5) *H HgA1c, TSH Test 12/25/23 05:02 Thyroid Stimulating Hormone (TSH) 3.40 uIU/mL (0.55-4.78) Urinalysis Test 12/24/23 17:17 Urine Color Yellow (Yellow) Urine Clarity Clear (Clear) Urine pH 7.0 (5.0-9.0) Urine Specific [place] > 1.050 (1.001-1.035) Urine Protein 1+ (Negative) H Urine Ketones Negative (Negative) Urine Blood 1+ /uL (Negative) H Urine Nitrite Negative (Negative) Urine Bilirubin Negative (Negative) Urine Urobilinogen Normal mg/dL (Negative) Urine Leukocyte Esterase Negative /uL (Negative) Urine RBC 30 /hpf (0 - 4) Urine WBC 2 /hpf (0 - 5) Urine Squamous Epithelial Cells Few /hpf (<5) Urine Bacteria None seen /hpf (None Seen) Urine Mucus Few (None Seen) Urine Glucose Normal mg/dL (Normal) Assessment/Plan Assessment/Plan # NSTEMI - ASA / Plavix - Lovenox Subq - Cardio Cx # Saddle PE - s/p Thrombectomy # YOVANI due to VMN? - Monitor renal function # Depression - Cont Home Meds # Goals of care- FULL CODE Plan discussed with: Patient My Orders Orders - DANNY LR MD Procedure Category Date Status Time Type And Screen BBK 12/25/23 Logged 06:39 Basic Metabolic Panel LAB 12/26/23 Verified 04:00 Date of Service: Dec 25, 2023 Billing Provider: DANNY LR MD Common Visit Codes: [id number] INP/OBS CARE(HIGH) DANNY LR MD Dec 25, 2023 15:25
[2023-12-25 16:34] LABS: Basophils # (auto) 0 10 ^3/uL (0-0.2); Basophils % (auto) 0.3 % (0.0-2.0); Eosinophils # (auto) 0 10 ^3/uL (0-0.8); Eosinophils % (auto) 0.5 % (0.0-7.0); Hematocrit 34.4 % (36.0-46.0); Hemoglobin 11.7 g/dL (12.2-16.2); Lymphocytes # (auto) 1.6 10 ^3/uL (0.4-5.4); Lymphocytes % (auto) 24.9 % (10.0-50.0); Mean Corpuscular Hemoglobin 32.5 pg (28.0-32.0); Mean Corpuscular Volume 95.5 fL (80.0-100.0); Monocytes # (auto) 0.4 10 ^3/uL (0-1.3); Monocytes % (auto) 6.7 % (0.0-12.0); Neutrophils # (auto) 4.2 10 ^3/uL (1.6-8.6); Neutrophils % (auto) 67.6 % (37.0-80.0); Platelet Count (auto) 159 10^3/uL (140-450); Red Cell Distribution Width 13.6 % (11.8-14.3); White Blood Cell 6.2 10^3/uL (4.4-10.8)
[2023-12-25 16:54] LABS: INR 1.05 (0.9-1.15); Partial Thromboplastin Time 29.3 SEC (24.5-34.5); Prothrombin Time 11.1 sec (9.3-11.8)
[2023-12-25] MEDS ORDERED: HEPARIN SODIUM (PORCINE) 5000 UNITS/ML 1ML VIAL IV ONE (18:00)
[2023-12-25 19:46] LABS: Basophils # (auto) 0 10 ^3/uL (0-0.2); Basophils % (auto) 0.5 % (0.0-2.0); Eosinophils # (auto) 0.1 10 ^3/uL (0-0.8); Eosinophils % (auto) 0.9 % (0.0-7.0); Hematocrit 34.9 % (36.0-46.0); Hemoglobin 11.9 g/dL (12.2-16.2); Lymphocytes # (auto) 1.7 10 ^3/uL (0.4-5.4); Lymphocytes % (auto) 29.4 % (10.0-50.0); Mean Corpuscular Hemoglobin 32.2 pg (28.0-32.0); Mean Corpuscular Volume 94.9 fL (80.0-100.0); Monocytes # (auto) 0.5 10 ^3/uL (0-1.3); Monocytes % (auto) 8.4 % (0.0-12.0); Neutrophils # (auto) 3.6 10 ^3/uL (1.6-8.6); Neutrophils % (auto) 60.8 % (37.0-80.0); Platelet Count (auto) 166 10^3/uL (140-450); Red Blood Cells 3.68 10^6/uL (4.0-5.20); Red Cell Distribution Width 13.8 % (11.8-14.3); White Blood Cell 5.9 10^3/uL (4.4-10.8)
[2023-12-25 20:01] LABS: INR 1.03 (0.9-1.15); Partial Thromboplastin Time 27.9 SEC (24.5-34.5); Prothrombin Time 10.9 sec (9.3-11.8)
[2023-12-26] VITALS (15 sets, daily range): BP systolic 100–145; BP diastolic 47–75; PULSE 60–76; RESP 9–22; TEMP 97.8–98.7; O2SAT 93–97
[2023-12-26] MEDS ORDERED: HEPARIN DRIP/D5W 100UNITS/ML 250 ML IV SCH ×2 (05:00→07:00)
[2023-12-26 05:31] LABS: Basophils # (auto) 0 10 ^3/uL (0-0.2); Basophils % (auto) 0.5 % (0.0-2.0); Eosinophils # (auto) 0.1 10 ^3/uL (0-0.8); Eosinophils % (auto) 1.4 % (0.0-7.0); Hematocrit 32.6 % (36.0-46.0); Hemoglobin 11.2 g/dL (12.2-16.2); Lymphocytes # (auto) 1.8 10 ^3/uL (0.4-5.4); Lymphocytes % (auto) 35.1 % (10.0-50.0); Mean Corpuscular Hemoglobin 32.7 pg (28.0-32.0); Mean Corpuscular Hgb Conc. 34.4 g/dL (32.0-36.0); Mean Corpuscular Volume 95.1 fL (80.0-100.0); Monocytes # (auto) 0.4 10 ^3/uL (0-1.3); Monocytes % (auto) 8.3 % (0.0-12.0); Neutrophils # (auto) 2.9 10 ^3/uL (1.6-8.6); Neutrophils % (auto) 54.7 % (37.0-80.0); Platelet Count (auto) 169 10^3/uL (140-450); Red Blood Cells 3.42 10^6/uL (4.0-5.20); Red Cell Distribution Width 13.6 % (11.8-14.3); White Blood Cell 5.2 10^3/uL (4.4-10.8)
[2023-12-26 05:40] LABS: Chloride 113 mmol/L (98-107); Potassium 3.5 mmol/L (3.5-5.1); Sodium 142 mmol/L (136-145)
[2023-12-26 05:41] LABS: Anion Gap 8 (5-15); Carbon Dioxide 21 mmol/L (20-31)
[2023-12-26 05:46] LABS: BUN/Creatinine Ratio 15.2 (10.0-20.0); Blood Urea Nitrogen 15 mg/dL (9-23); Glucose 109 mg/dL (74-106)
[2023-12-26 06:03] LABS: INR 1.09 (0.9-1.15); Prothrombin Time 11.5 sec (9.3-11.8)
[2023-12-26 06:05] LABS: Partial Thromboplastin Time 136.7 SEC (24.5-34.5)
[2023-12-26] MEDS ORDERED: PATIENTS OWN MEDICATION (ELIQUIS 10 MG) PO SCH (10:00)
[2023-12-26] MEDS: buPROPion HCL 75 MG TAB PO ONE (11:30)
--- NOTE | 2023-12-26 12:00 | DVHPN2 ---
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" "your ravindra you dont know who I am" and threatening myself with RN pt groin site is stable Objective vital signs Vital Sign Date Time Temp Pulse Resp B/P (MAP) Pulse Ox O2 Delivery O2 Flow Rate FiO2 12/26/23 11:00 66 20 108/62 (77) 12/26/23 08:00 95 12/26/23 08:00 Room Air* 0 21 12/26/23 08:00 98.7 98.7 Total Intake and Output 12/25/23 12/25/23 12/26/23 15:00 23:00 07:00 Intake Total 55 ml 7.5 ml 417 ml Balance 55 ml 7.5 ml 417 ml medications Current Medications Medications Dose Ordered Sig/Audrey Route Start Time Stop Time Status Last Admin Dose Admin Aspirin 81 mg DAILY PO 12/24/23 10:00 12/26/23 10:44 81 MG Atorvastatin Calcium 80 mg HS PO 12/23/23 22:00 12/25/23 22:10 80 MG Metoprolol Tartrate 12.5 mg Q12HR PO 12/23/23 22:00 12/24/23 21:29 12.5 MG Morphine Sulfate 2 mg Q30MP PRN IV 12/23/23 21:15 Acetaminophen 650 mg Q6HP PRN PO 12/23/23 21:15 Docusate Sodium 100 mg DAILY PO 12/24/23 10:00 Nitroglycerin 0.4 mg Q5MINP PRN SL 12/23/23 21:15 Ondansetron HCl 4 mg Q4HP PRN IV 12/23/23 21:15 Topiramate 25 mg BID PO 12/24/23 10:00 12/26/23 11:11 25 MG Gabapentin 800 mg DAILY PO 12/25/23 10:00 12/26/23 10:41 800 MG Heparin Sodium/ Dextrose 250 ml @ 12 mls/hr [id number] IV 12/26/23 07:00 Apixaban 10 mg BID PO 12/26/23 10:00 01/02/24 09:59 UNV Apixaban 5 mg BID PO 12/26/23 10:00 UNV Bupropion HCl 300 mg DAILY PO 12/27/23 10:00 Examination: GENERAL:Abnormal, HEENT:Abnormal, LUNGS:Abnormal, CVS:Abnormal, ABDOMEN:Abnormal laboratory and microbiology Laboratory Tests 12/26/23 04:29 Test 12/26/23 04:29 Range/Units Serum Glucose 109 H 74-106 mg/dL Problem List/Assessment/Plan Problem List/Assessment/Plan saddle PE dvt obesity morbid htn hypoxia s/p thrombectomy pt very combative which caused some bleeding from cv perspective pt can be dc'ed home on eliquis 10 mg po bid x 7 days then 5 mg po bid i will no longer see this patient going forward due to her threatening, non compliant behavior 40 mins critical care time spent Plan discussed with: Patient My Orders My Orders Orders - DEBRA SOLORZANO MD Procedure Category Date Status Time Post Cath Vital Signs [facility] 12/25/23 In Process Q 15min Post Cath Activity [facility] 12/25/23 In Process Protocol 12:41 Flat In Bed [facility] 12/25/23 In Process 12:41 * Dispatcher [employer] CONS 12/25/23 Transmitted Consult Transfer Orders XFER 12/25/23 Transmitted 14:27 Communication Order ORDERS 12/25/23 Transmitted 16:34 Heparin Per Pharmacy [facility] 12/25/23 In Process Protocol 18:15 PTPTT LAB 12/26/23 Logged 13:00 Heparin Drip/D5w [facility] 12/26/23 In Process 100units/Ml 07:00 Transfer Orders XFER 12/26/23 Transmitted 07:24 Apixaban (Eliquis) PHA 12/26/23 Logged 10:00 Apixaban (Eliquis) PHA 12/26/23 Logged 10:00 Date of Service: Dec 26, 2023 Billing Provider: DEBRA SOLORZANO MD Common Visit Codes: NOT BILLABLE DEBRA SOLORZANO MD Dec 26, 2023 12:00
[2023-12-26] MEDS: POTASSIUM CHL 20 Meq TABLET PO ONE (12:07)
[2023-12-26] MEDS: APIXABAN 5 MG TAB PO SCH (12:23)
[2023-12-26] MEDS ORDERED: FURO1TAB33 PO (12:41)
[2023-12-26] MEDS ORDERED: APIX5TAB PO (12:41)
[2023-12-26] MEDS ORDERED: POTA-36 PO (12:41)
--- NOTE | 2023-12-26 12:46 | DVHDS2 ---
Discharge Summary Date of Admission Dec 23, 2023 at 21:04 Date of Discharge: Dec 26, 2023 Admitting Diagnosis Saddle pulmonary embolism Labs/Diagnostic Data: Laboratory Results Test 12/26/23 04:29 12/25/23 12:11 12/25/23 05:02 12/24/23 17:17 White Blood Count 5.2 10^3/uL (4.4-10.8) Red Blood Count 3.42 10^6/uL (4.0-5.20) Hemoglobin 11.2 g/dL (12.2-16.2) Hematocrit 32.6 % (36.0-46.0) Mean Corpuscular Volume 95.1 fL (80.0-100.0) Mean Corpuscular Hemoglobin 32.7 pg (28.0-32.0) Mean Corpuscular Hemoglobin Concent 34.4 g/dL (32.0-36.0) Red Cell Distribution Width 13.6 % (11.8-14.3) Platelet Count 169 10^3/uL (140-450) Mean Platelet Volume 8.2 fL (6.9-10.8) Neutrophils (%) (Auto) 54.7 % (37.0-80.0) Lymphocytes (%) (Auto) 35.1 % (10.0-50.0) Monocytes (%) (Auto) 8.3 % (0.0-12.0) Eosinophils (%) (Auto) 1.4 % (0.0-7.0) Basophils (%) (Auto) 0.5 % (0.0-2.0) Neutrophils # (Auto) 2.9 10 ^3/uL (1.6-8.6) Lymphocytes # (Auto) 1.8 10 ^3/uL (0.4-5.4) Monocytes # (Auto) 0.4 10 ^3/uL (0-1.3) Eosinophils # (Auto) 0.1 10 ^3/uL (0-0.8) Basophils # (Auto) 0 10 ^3/uL (0-0.2) Nucleated Red Blood Cells 0.0 % Prothrombin Time 11.5 sec (9.3-11.8) Prothrombin Time INR 1.09 (0.9-1.15) Activated Partial Thromboplast Time 136.7 SEC (24.5-34.5) Sodium Level 142 mmol/L (136-145) Potassium Level 3.5 mmol/L (3.5-5.1) Chloride Level 113 mmol/L (98-107) Carbon Dioxide Level 21 mmol/L (20-31) Anion Gap 8 (5-15) Blood Urea Nitrogen 15 mg/dL (9-23) Creatinine 0.99 mg/dL (0.550-1.02) Glomerular Filtration Rate Calc 61 mL/min (>90) BUN/Creatinine Ratio 15.2 (10.0-20.0) Serum Glucose 109 mg/dL (74-106) Calcium Level 9.0 mg/dL (8.7-10.4) Activated Clotting Time 261 SEC. (93-166) Thyroid Stimulating Hormone (TSH) 3.40 uIU/mL (0.55-4.78) Urine Color Yellow (Yellow) Urine Clarity Clear (Clear) Urine pH 7.0 (5.0-9.0) Urine Specific [place] > 1.050 (1.001-1.035) Urine Protein 1+ (Negative) Urine Ketones Negative (Negative) Urine Blood 1+ /uL (Negative) Urine Nitrite Negative (Negative) Urine Bilirubin Negative (Negative) Urine Urobilinogen Normal mg/dL (Negative) Urine Leukocyte Esterase Negative /uL (Negative) Urine RBC 30 /hpf (0 - 4) Urine WBC 2 /hpf (0 - 5) Urine Squamous Epithelial Cells Few /hpf (<5) Urine Bacteria None seen /hpf (None Seen) Urine Mucus Few (None Seen) Urine Glucose Normal mg/dL (Normal) Test 12/24/23 10:50 12/24/23 05:57 12/23/23 16:59 D-Dimer, Quantitative 11.33 mg/L FEU (0.0-0.49) Troponin I High Sensitivity 1293 ng/L (</=34) Triglycerides Level 109 mg/dL (< 150) Cholesterol Level 206 mg/dL (< 200) LDL Cholesterol 135 mg/dL (< 100) HDL Cholesterol 48 mg/dL (40-59) Magnesium Level 2.3 mg/dL (1.6-2.6) Total Bilirubin 0.5 mg/dL (0.2-1.0) Aspartate Amino Transferase (AST) 20 U/L (13-40) Alanine Aminotransferase (ALT) 23 U/L (7-40) Alkaline Phosphatase 76 U/L (46-116) B-Type Natriuretic Peptide 61.11 pg/mL (0-100) Total Protein 6.9 g/dL (5.7-8.2) Albumin 4.4 g/dL (3.2-4.8) Other Laboratory Tests 12/26/23 04:29 Brief Hx & Hospital Course: 73 yo with chest pain and shortness of breath and weakness was stated to have chest pain on arrival in the ED also stated noted RBBB at the time of ED arrival on evaluation for admission trops were seen to be severely elevated cardio was called directly and recommended admission and evaluation for possible labor training manager patient has received therapeutic Lovenox already. Patient was found to have an elevated D-Dimer, CTA of the chest was done which showed a Pulm EMbolism. Patient underwent thrombectomy see operative report below, patient became agitated during the procedure moving a lot causing the groin area to bleed. Patient did undergo thrombectomy patient is on room air now groin site is stable needs to continue Eliquis at home. Patient is to follow up with primary care Dr in one week, DVT was ruled out initially now showed nonocclusive thrombus. Patient is to be screen for causes of hypercoagulability and PE patient should also follow up with the Hematology Dr. Monterroso. Operations or Procedures DATE OF SURGERY: 12/25/2023 PREOPERATIVE DIAGNOSES: Saddle pulmonary embolism with bilateral pulmonary embolism, non ST-elevation myocardial infarction, elevated troponin, right ventricular strain. POSTOPERATIVE DIAGNOSES: Saddle pulmonary embolism with bilateral pulmonary embolism, non ST-elevation myocardial infarction, elevated troponin, right ventricular strain. PROCEDURES PERFORMED: * Primary percutaneous transluminal mechanical thrombectomy arterial initial vessel, 46150. * Percutaneous transluminal mechanical thrombectomy of second and all subsequent vessels, 22170, 02607. * Pulmonary angiography, unilateral 57069. * Angiography selective each additional vessel, 50860. * Venography inferior, 89648. * Ultrasound-guided vascular access, 18438, saved to the PACS system. * Right heart catheterization, 23711. * Injection procedure during cardiac cath for angiography, 38424. * Injection procedure for venography, 17799. * Introduction of catheter to the IVC, 92784. * Introduction of catheter to the right heart or main PA, 45920. * Selective catheter placement left and right main PA, 59558. * Selective catheter placement segmental or subsegmental arteries, this was the right truncus arteriosus as well as the left middle and left lower lobar segmental arteries, 82013. PATIENT HISTORY: The patient presents with shortness of breath, hypoxia, and elevated troponin. After an elevated D-dimer, CT angio confirmed the saddle PE with RV strain. Echo confirmed this as well. The patient was placed on a heparin drip at this point. PROCEDURE IN DETAIL: The patient was brought to the labor training manager in n.p.o. state. She was prepped in sterile fashion. The patient initially decided she did not want to have any sedation whatsoever. I did try to explain to the patient that this may be helpful at a light amount, but she declined it initially and said that she would reconsider midway through the procedure. I gave 8 mL of 2% lidocaine to her right groin with antegrade flow wall puncture. I cannulated her right common femoral vein and placed a 6-Martiniquais sheath. Venography at this point showed a patent common iliac, external iliac vein, and common femoral vein into the distal IVC. At this point, I brought a crossing catheter and wire into the IVC and over an Amplatz wire, I made a dilatation with several dilators and eventually placed a 24-Martiniquais GORE DrySeal sheath placed into the vein. At this point, I removed that and over a pigtail catheter, I crossed into the right main PA. At this point, the pigtail catheter was placed into the main PA. PA pressures were obtained. Please see cath report for details and then I brought a 24-Martiniquais Inari FlowTriever device for mechanical thrombectomy to the right main PA. I also did angiogram into the right truncus which showed improved flow into the right upper lobe. At this point, after attempting to remove thrombus, the catheter was placed into the left system into the left lower. Because the right ventricle was extremely large and boggy, I did switch to a T20 curve device. The patient did request sedation at this point and the patient was given sedation and was hemodynamically stable throughout the procedure. The patient did get severely anxious during the procedure and started pulling at all of her catheters and moving around. She had to be restrained, but was making the overall procedure extremely difficult. Multiple were obtained in the left lower and left main PA with significant amount of thrombus removal. At this point, the patient was hemodynamically stable, crying and being very difficult and therefore we had to complete the procedure. I did another pulmonary angiogram, showed significant improvement in the left side and left lower. At this point, I removed the system and with a 2-Martiniquais silk placed a FlowStasis device. There were no immediate complications. CONCLUSION: Successful extirpation of matter via mechanical thrombectomy within the pulmonary arteries. Significant improvement in flow after mechanical thrombectomy. Condition at Discharge: Poor Final Diagnosis/Problems List # NSTEMI # Saddle PE - s/p Thrombectomy - Cont Eliquis # YOVANI due to VMN? - Monitor renal function # Depression - Cont Home Meds Discharge Disposition: Home Discharge Instruct/Medications Diet: Cardiac 2g Na,low cholest (2 gm sodium, low cholesterol) Activity: Light activity Follow Up/Referral: PCP in 1 weekj Medications: [facility] Discharge Statement: "Patient was advised to return to the ER or call 911 if any headaches, dizziness, shortness of breath, chest pain, abdominal pain, bleeding, fevers, or worsening of medical condition. Patient was counseled about treatment plan, medications, possible side effects, patientverbalized understanding. All questions were answered to the best of my ability. This discharge took greater then 30 minutes in planning, reviewing documentation, counseling the patient, and discussing with other team members." ASSESSMENT ASSESSMENT Assessment Date of Service: Dec 26, 2023 Billing Provider: DANNY LR MD Common Visit Codes: [id number] DISCH DAY >30min DANNY LR MD Dec 26, 2023 12:46
[2023-12-27] MEDS ORDERED: buPROPion HCL 75 MG TAB PO SCH (10:00)
[2024-01-02] MEDS ORDERED: APIXABAN 5 MG TAB PO SCH (10:00)
== END 2023-12-26 15:36 | disposition home or self-care (01) | DRG 163 ==
LOC: EDBD 16:44 → ER 16:49 → TELE 21:04 → TELE-CENTR 23:23 → TELE-EAST 12-25 00:17 → DOU IN ICU 12-25 17:46 → UNDODISIN 12-26 16:35
PROVIDERS: ADMIT Hospitalist; ATTEND Internal Medicine
PROC: 02CQ3ZZ Extirpation of Matter from Right Pulmonary Artery, Percutaneous Approach (ICD-10-PCS; principal; 2023-12-25)
PROC: 02CR3ZZ Extirpation of Matter from Left Pulmonary Artery, Percutaneous Approach (ICD-10-PCS; 2023-12-25)
PROC: B51BYZZ Fluoroscopy of Right Lower Extremity Veins using Other Contrast (ICD-10-PCS; 2023-12-25)
PROC: B31TYZZ Fluoroscopy of Left Pulmonary Artery using Other Contrast (ICD-10-PCS; 2023-12-25)
PROC: B31SYZZ Fluoroscopy of Right Pulmonary Artery using Other Contrast (ICD-10-PCS; 2023-12-25)
DX: I26.92 Saddle embolus of pulmonary artery without acute cor pulmonale (principal); I21.4 Non-ST elevation (NSTEMI) myocardial infarction; N17.0 Acute kidney failure with tubular necrosis; J96.01 Acute respiratory failure with hypoxia; E78.5 Hyperlipidemia, unspecified; I10 Essential (primary) hypertension; F32.A Depression, unspecified; E66.01 Morbid (severe) obesity due to excess calories; I45.10 Unspecified right bundle-branch block; Z91.199 Patient's noncompliance with other medical treatment and regimen due to unspecified reason; Z80.52 Family history of malignant neoplasm of bladder; Z79.899 Other long term (current) drug therapy; Z68.29 Body mass index [BMI] 29.0-29.9, adult
CPT/HCPCS: 36012; 36014; 36415; 37187; 71045; 71275; 80048; 80053; 80061; 81001; 83735; 83880; 84443; 84484; 85025; 85379; 85610; 85730; 86850; 86900; 86901; 93005; 93306; 93971; 96361; 96365; 96372; 99152; 99291; G0378; J2250; Q9967